=== PATIENT | male | born 1940 | race Caucasian/White ===

== ENCOUNTER 2019-02-08 07:55 | Observation (INO) | payer MEDICARE, OTHER ==
[2019-02-07 11:25] LABS: EOSINOPHILS # (AUTO) 0.2 X10'3 (0-0.9); LYMPHOCYTES # (AUTO) 1.2 X10'3 (1.1-4.8); LYMPHOCYTES % (AUTO) 26.6 % (21-51); MEAN CORPUSCULAR HEMOGLOBIN 32.4 PG (27.0-31.0); MEAN CORPUSCULAR HGB CONC 33.3 g/dL (33.0-36.5); MEAN CORPUSCULAR VOLUME 97.4 FL (78-98); MEAN PLATELET VOLUME 7.9 FL (7.4-10.4); MONOCYTES # (AUTO) 0.5 X10'3 (0-0.9); MONOCYTES % (AUTO) 11.9 % (2-12); NEUTROPHILS # (AUTO) 2.5 X10'3 (1.8-7.7); NEUTROPHILS % (AUTO) 56.5 % (42-75); PRE OP HEMATOCRIT 43.3 % (42.0-52.0); PRE OP HEMOGLOBIN 14.4 g/dL (14.0-17.9); PRE OP PLATELET COUNT 197 X10'3 (140-440); RED BLOOD COUNT 4.44 X10'6 (4.70-6.10); RED CELL DISTRIBUTION WIDTH 13.9 % (11.5-14.5)
[2019-02-07 11:39] LABS: ALBUMIN 3.7 G/DL (3.4-5.0); ALBUMIN/GLOBULIN RATIO 1.1 (1.1-1.5); ALKALINE PHOSPHATASE 77 IU/L (46-116); BLOOD UREA NITROGEN 21 MG/DL (7-18); BUN/CREATININE RATIO 19.4 (5.4-32.0); CHLORIDE 106 MMOL/L (99-107); CREATININE 1.08 MG/DL (0.60-1.10); PRE OP ALT 26 U/L (30-65); PRE OP ANION GAP 8 (8-16); PRE OP AST 18 U/L (10-37); PRE OP BILIRUB, TOTAL 0.3 MG/DL (0.0-1.0); PRE OP GLUCOSE 78 MG/DL (70-104); PRE OP POTASSIUM 4.2 MMOL/L (3.4-5.1); PRE OP SODIUM 143 MMOL/L (135-145); TOTAL CARBON DIOXIDE 29.5 MMOL/L (24-32); TOTAL PROTEIN 7.2 G/DL (6.4-8.2); eGFR 66 ML/MIN
[~2019-02-08] VITALS: Ht 165.1 cm; Wt 93.7 kg
[2019-02-08] VITALS (17 sets, daily range): BP systolic 128–164; BP diastolic 40–96
[~2019-02-08 07:55] MED LIST: ACET-2119 PO; AMIO200T61 PO; ASPI-611 PO; LOSA25TA96 PO; ROSU40TA22 PO
[2019-02-08] MEDS ORDERED: cefazolin/dext.iso 2gm/50ml 50 ML IV ONE (08:00)
[2019-02-08] MEDS ORDERED: losartan 25mg tablet PO ONE (08:00)
[2019-02-08] MEDS ORDERED: ringers solution, lacted 1,000 ML IV SCH ×2 (08:00→11:43)
[2019-02-08] MEDS ORDERED: VANCOMYCIN INJ 1000 MG in NORMAL SALINE 250ml IV.SOLN IV ONE (08:00)
[2019-02-08] MEDS ORDERED: famotidine 20mg tablet PO ONE (08:00)
[2019-02-08] MEDS ORDERED: amiodarone 200mg tablet PO ONE (09:20)
[2019-02-08] MEDS ORDERED: methylPREDNISolone sod succ 125mg/2ml vial ONE (09:27)
[2019-02-08] MEDS ORDERED: BUPIVAcaine/PF 2.5 mg/ml (0.25%) 30ml vial ONE (09:27)
[2019-02-08] MEDS ORDERED: fentaNYL/PF 50MCG/1 ML 2ML syringe ONE (10:28)
[2019-02-08] MEDS ORDERED: propofol inj 20 ML IV ONE (10:29)
[2019-02-08] MEDS ORDERED: midazolam 2 mg/2 ml injection ONE (10:29)
[2019-02-08] MEDS ORDERED: ROPIVAcaine 0.5% (5mg/ml) 30ml vial ONE (10:30)
[2019-02-08] MEDS ORDERED: sevoflurane 250ml liquid IH ONE (10:31)
[2019-02-08] MEDS ORDERED: ePHEDrine 50MG/ML INJ. ONE (10:31)
[2019-02-08] MEDS ORDERED: ondansetron/PF 4mg/2ml inj IV PRN ×2 (11:45→13:10)
[2019-02-08] MEDS ORDERED: meperidine/PF 25mg/ml syringe IV PRN ×3 (11:45)
[2019-02-08] MEDS ORDERED: morphine 4 MG/ML inj SYRINge IV PRN ×2 (11:45)
[2019-02-08] MEDS ORDERED: proCHLORperazine 10 MG/2 ml inj IV PRN (11:45)
--- NOTE | 2019-02-08 13:05 | NUR ---
Received from OR via [facility] , accompanied by Anesthesiologist JEFF and report given by Anesthesiolgist. PATIENT WITH 20G PIV IN LEFT UE RUNNING LR AT 100. RIGHT THUMB SPICA SPLINT IS CDI, UNIVALVED.10L MASK ON WITH 97% SATURATIONS. Addendum: 02/08/19 at 1318 by Prashanth Matthews RN, RN Amended: Links added.
[2019-02-08] MEDS ORDERED: HYDROcodone/acetaminophen 10/325mg tab PO PRN ×2 (13:10)
[2019-02-08] MEDS ORDERED: magnesium hydroxide 30ml (MOM) UD suspension PO PRN (13:10)
[2019-02-08] MEDS ORDERED: diphenhydrAMINE 25mg capsule PO PRN ×2 (13:10)
[2019-02-08] MEDS ORDERED: acetaminophen 325mg tablet PO PRN (13:10)
[2019-02-08] MEDS ORDERED: bisacodyl 10mg suppository rectal RC PRN (13:10)
--- NOTE | 2019-02-08 14:00 | NUR ---
Pt arrived to the floor, returned from lunch break at 14:10, received report from charge nurse at 14:20
--- NOTE | 2019-02-08 14:05 | NUR ---
ALL CRITERIA FOR TRANSFER TO THE FLOOR HAS BEEN ACHIEVED. VSS. BED LOW, CALL LIGHT AND VS. SET IN PLACE. RN PRESENT TO ACCEPT CARE. PATIENT RESTING COMFORTABLY IN BED. BELONGINGS SENT WITH PATIENT. DRESSINGS CDI. RANDI LIN PRESENT TO ACCEPT CARE. PATIENT AMBULATED FROM [facility] TO [facility] IN 4023 WHERE HE WAS BOOSTED IN BED AND DONNED VSS AND PILLOW UNDER RIGHT ELBOW. PRESENT AND VSS CURRENTLY, DRESSING/ SPLINT IS CDI. Addendum: 02/08/19 at 1431 by Prashanth Tariq - R[facility]I BRAYN Amended: Links added.
[2019-02-08] MEDS: acetaminophen 325mg tablet PO SCH ×2 (16:06→20:30)
[2019-02-08] MEDS: ceFAZolin 1GM/D5W- ADD-VANTAGE 50 ML IV SCH (16:07)
[2019-02-08] MEDS: potassium cl 20mEq in 1/2 NS 1,000 ML IV SCH (16:07)
--- NOTE | 2019-02-08 18:15 | NUR ---
Problems reprioritized. Patient report given, questions answered & plan of care reviewed with Marco Salazar
--- NOTE | 2019-02-08 19:00 | NUR ---
Patient in room ORTHO 4024. I have received report from Nicci BRYAN and had the opportunity to ask questions and assume patient care.
[2019-02-08] MEDS ORDERED: vancomycin/NS 1 GM ADD-VANTAGE 250 ML IV SCH (20:00)
[2019-02-08] MEDS: ascorbic acid 500mg tablet PO SCH (20:31)
[2019-02-08] MEDS: gabapentin 300mg capsule PO SCH (20:31)
[2019-02-08] MEDS ORDERED: sennosides 8.6mg tablet PO SCH (21:00)
[2019-02-09] MEDS: ceFAZolin 1GM/D5W- ADD-VANTAGE 50 ML IV SCH (00:14)
[2019-02-09] MEDS: acetaminophen 325mg tablet PO SCH ×2 (02:31→08:24)
[2019-02-09] MEDS: potassium cl 20mEq in 1/2 NS 1,000 ML IV SCH ×2 (02:32→05:08)
[2019-02-09 06:00] VITALS: BP 121/60
--- NOTE | 2019-02-09 06:30 | NUR ---
Patient in room ORTHO 4024. I have received report from Marco Pedraza and had the opportunity to ask questions and assume patient care.
--- NOTE | 2019-02-09 07:12 | NUR ---
Message received regarding critical potassium of 8.6, requested redraw. Redraw performed at 08:23. Potassium was 4.1
[2019-02-09] MEDS ORDERED: losartan 25mg tablet PO SCH (08:00)
[2019-02-09] MEDS ORDERED: multivitamins, therapeutics tablet PO SCH (08:00)
[2019-02-09] MEDS ORDERED: atorvastatin 20mg tablet PO SCH (08:00)
[2019-02-09] MEDS ORDERED: amiodarone 200mg tablet PO SCH (08:00)
[2019-02-09] MEDS ORDERED: non-formulary drug (Rosuvastatin Calcium 1 TAB) PO SCH (08:00)
[2019-02-09] MEDS ORDERED: enoxaparin 40mg/0.4ml syringe SQ SCH (08:00)
[2019-02-09] MEDS: gabapentin 300mg capsule PO SCH (08:23)
[2019-02-09] MEDS: ascorbic acid 500mg tablet PO SCH (08:24)
[2019-02-09 08:49] LABS: BASOPHILS % (AUTO) 0.1 % (0-1); EOSINOPHILS % (AUTO) 0 % (0-6); HEMATOCRIT 40.2 % (42.0-52.0); HEMOGLOBIN 13.4 g/dl (14.0-17.9); LYMPHOCYTES # (AUTO) 0.9 X10'3 (1.1-4.8); LYMPHOCYTES % (AUTO) 5.9 % (21-51); MEAN CORPUSCULAR HEMOGLOBIN 32.2 PG (27.0-31.0); MEAN CORPUSCULAR HGB CONC 33.4 g/dL (33.0-36.5); MEAN CORPUSCULAR VOLUME 96.4 FL (78-98); MEAN PLATELET VOLUME 8.7 FL (7.4-10.4); MONOCYTES % (AUTO) 6.9 % (2-12); NEUTROPHILS # (AUTO) 13.2 X10'3 (1.8-7.7); NEUTROPHILS % (AUTO) 87.1 % (42-75); RED BLOOD COUNT 4.17 X10'6 (4.70-6.10); RED CELL DISTRIBUTION WIDTH 13.4 % (11.5-14.5); WHITE BLOOD COUNT 15.2 X10'3 (4.5-11.0)
[2019-02-09 09:14] LABS: ANION GAP 11 (8-16); CHLORIDE 105 MMOL/L (99-107); POTASSIUM 4.1 MMOL/L (3.5-5.1); SODIUM 139 MMOL/L (135-145); TOTAL CARBON DIOXIDE 22.8 MMOL/L (24-32)
[2019-02-09 09:19] LABS: PLATELET COUNT 36 X10'3 (140-440)
[2019-02-09 10:00] VITALS: BP 131/62
--- NOTE | 2019-02-09 10:20 | NUR ---
Pt's labs were redrawn at 08:23 to verify the potassium level. The draw at 05:47 indicated a potassium of 8.6. The redraw at 08:23 was 4.1 for the potassium. The redraw also indicated the platelets were at 36 but were 197 on 02/07/19. WBCs were also elevated. A call was made to the doctor, there was no answer and the VM was not set up and I was unable to leave a message. Will follow up with a redraw.
[2019-02-09 10:50] LABS: BASOPHILS % (AUTO) 0.2 % (0-1); EOSINOPHILS % (AUTO) 0 % (0-6); HEMATOCRIT 41.1 % (42.0-52.0); HEMOGLOBIN 13.6 g/dl (14.0-17.9); LYMPHOCYTES # (AUTO) 1.1 X10'3 (1.1-4.8); LYMPHOCYTES % (AUTO) 6.2 % (21-51); MEAN CORPUSCULAR HEMOGLOBIN 32.3 PG (27.0-31.0); MEAN CORPUSCULAR VOLUME 97.7 FL (78-98); MEAN PLATELET VOLUME 9.2 FL (7.4-10.4); MONOCYTES # (AUTO) 1.4 X10'3 (0-0.9); MONOCYTES % (AUTO) 8.2 % (2-12); NEUTROPHILS % (AUTO) 85.4 % (42-75); RED BLOOD COUNT 4.21 X10'6 (4.70-6.10); RED CELL DISTRIBUTION WIDTH 13.6 % (11.5-14.5); WHITE BLOOD COUNT 17.5 X10'3 (4.5-11.0)
[2019-02-09 11:00] LABS: PLATELET COUNT 39 X10'3 (140-440)
--- NOTE | 2019-02-09 11:06 | NUR ---
called lab, platelets still critical at 39. Called doctor, okay to discharge pt, advise pt not to take any aspirin for two weeks and to fax platelet results to pt's PCP
--- NOTE | 2019-02-09 11:55 | NUR ---
Reviewed discharge instructions with pt and spouse. Advised pt not to take aspirin for two weeks per doctor and noted it on DC instructions. Pt resides in [place] and will be taking the lab results regarding the platelets to his PCP's office in [place] on Tuesday2018. All of pt's belongings were returned to pt. Pt is alert, oriented and does not c/o pain. Pt opted to walk downstairs, accompanied by his , who will drive him home.
== END 2019-02-09 12:30 | disposition home or self-care (01) ==
LOC: PAS 07:55 → EDSTATUS 10:00 → ORTHO 4S 14:32
PROVIDERS: ADMIT Orthopaedic Surgery; ATTEND Orthopaedic Surgery
DX: M18.11 Unilateral primary osteoarthritis of first carpometacarpal joint, right hand (principal); M65.351 Trigger finger, right little finger; M65.331 Trigger finger, right middle finger; G56.01 Carpal tunnel syndrome, right upper limb; I10 Essential (primary) hypertension; M54.2 Cervicalgia; G89.4 Chronic pain syndrome; E78.5 Hyperlipidemia, unspecified; E66.01 Morbid (severe) obesity due to excess calories; Z68.35 Body mass index [BMI] 35.0-35.9, adult
CPT/HCPCS: 25312; 25447; 26055; 36415; 64712; 64719; 80051; 80053; 82948; 85025; 93005; 96365; 96366; 96367; 96372; 97112; 97116; 97161; 97530; A6222; C1713; G0378; J0690; J2250; J2704; J2930; J3010; J3370; J3490; J7120; A4215; A4618; A6449; A7000; J1650; J2795; J3480